=== PATIENT | male | born 1975 | race African-American/Black ===

== ENCOUNTER 2018-10-13 10:27 | Emergency (ER) | payer OTHER ==
[2018-10-13 10:33] VITALS: BMI 22.8
--- NOTE | 2018-10-13 11:13 | PDOC ---
History of Present Illness - General Chief Complaint: Laceration Stated Complaint: LAC RT EYE Time Seen by Provider: 10/13/18 10:38 Past History - Past Medical History Allergies/Adverse Reactions: Allergies Allergy/AdvReac Type Severity Reaction Status Date / Time No Known Allergies Allergy Verified 10/13/18 10:33 Home Medications: Ambulatory Orders NK [No Known Home Medication] 10/13/18 COPD: No - Suicide/Smoking/Psychosocial Hx Smoking History: Never smoked *Physical Exam - Vital Signs Last Vital Signs Temp Pulse Resp BP Pulse Ox 98 F 63 18 107/75 99 10/13/18 10:29 10/13/18 10:29 10/13/18 10:29 10/13/18 10:29 10/13/18 10:29
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
[2018-10-13] MEDS ORDERED: ACETAMINOPHEN 650 MG/20.3 ML ORAL SOLUTION (CUPS) PO ONE (11:40)
[2018-10-13] MEDS ORDERED: DIPHTH,PERTUSS(ACELL),TET 0.5 ML DISP.SYRIN IM ONE ×2 (11:41→11:44)
[2018-10-13] MEDS ORDERED: ACETAMINOPHEN 650 MG/20.3 ML ORAL SOLUTION (CUPS) ONE (11:44)
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
[2018-10-13] MEDS ORDERED: SODIUM CHLORIDE 1,000 ML IV STA (13:14)
[2018-10-13 14:21] VITALS: BP 107/69; PULSE 68; TEMP 98.1
== END 2018-10-13 14:18 | disposition short-term general hospital (02) ==
LOC: JER 10:27
PROC: 3E0337Z Introduction of Electrolytic and Water Balance Substance into Peripheral Vein, Percutaneous Approach (ICD-10-PCS; principal; 2018-10-13)
PROC: 3E0234Z Introduction of Serum, Toxoid and Vaccine into Muscle, Percutaneous Approach (ICD-10-PCS; 2018-10-13)
DX: S01.111A Laceration without foreign body of right eyelid and periocular area, initial encounter (principal); S05.01XA Injury of conjunctiva and corneal abrasion without foreign body, right eye, initial encounter; H02.842 Edema of right lower eyelid; H02.841 Edema of right upper eyelid; W22.8XXA Striking against or struck by other objects, initial encounter; Y93.89 Activity, other specified; Y92.038 Other place in apartment as the place of occurrence of the external cause; Y99.8 Other external cause status; Y08.89XA Assault by other specified means, initial encounter; Y07.02 Wife, perpetrator of maltreatment and neglect
CPT/HCPCS: 90471; 90715; 96360; 99284-25; J7030

== ENCOUNTER 2019-12-28 20:57 | Emergency (ER) | payer OTHER ==
[2019-12-28 21:04] VITALS: BP 126/89; PULSE 74; TEMP 98.9; BMI 24.4
--- NOTE | 2019-12-28 21:13 | PDOC ---
History of Present Illness - General History Source: Patient Exam Limitations: No Limitations - History of Present Illness Initial Comments: 12/28/19 21:15 43yM w PMHx medial canthus laceration s/p 2 surgeries presenting w swelling, discomfort, and purulent discharge at medial canthus noted at 8pm. Denies eye trauma. Denies pain w EOM, vision changes, headache. Had surgery at [facility] in October 2018 after being evaluated for medial canthus lac on 10/13/18 and [facility] in May 2019, doesn't remember opthamologists names (at home) <Dereck Parr - Last Filed: 12/28/19 23:07> <Torsten Gonzalez - Last Filed: 01/02/20 17:30> - General Chief Complaint: Eye Problem Stated Complaint: RIGHT EYE EVALUATION Time Seen by Provider: 12/28/19 21:12 Past History - Medical History COPD: No - Psycho-Social/Smoking History Smoking History: Never smoked - Substance Abuse Hx (Audit-C & DAST Scrn) How often the patient has a drink containing alcohol: Never Score: In Men: 4 or > Positive; In Women: 3 or > Positive: 0 Screen Result (Pos requires Nsg. Audit-10AR): Negative In the last yr the pt used illegal drug/Rx for NonMed reason: No Score: Yes response is considered Positive: 0 Screen Result (Positive result requires Nsg. DAST-10): Negative <Dereck Parr - Last Filed: 12/28/19 23:07> <Torsten Gonzalez - Last Filed: 01/02/20 17:30> - Medical History Allergies/Adverse Reactions: Allergies Allergy/AdvReac Type Severity Reaction Status Date / Time No Known Allergies Allergy Verified 10/13/18 10:33 Home Medications: Ambulatory Orders Ciprofloxacin 0.3% Eye Drops [Ciloxan 0.3% Eye Drops --] 2 drop OD Q4H 7 Days #1 bottle 12/28/19 Moxifloxacin HCl [Moxifloxacin] 3 ml OP QID 7 Days #1 drops 12/28/19 Review of Systems - Review of Systems Constitutional: No: Chills, Fever HEENTM: No: Eye Pain, Recent change in vision Respiratory: No: Cough, Shortness of Breath Cardiac (ROS): No: Chest Pain, Palpitations ABD/GI: No: Constipated, Diarrhea, Nausea, Vomiting : No: Burning, Dysuria Musculoskeletal: No: Back Pain, Joint Pain Integumentary: No: Bruising, Flushing Neurological: No: Headache, Seizure Psychiatric: No: Anxiety, Depression Endocrine: No: Intolerance to Cold, Intolerance to Heat Hematologic/Lymphatic: No: Anemia, Blood Clots <Dereck Parr - Last Filed: 12/28/19 23:07> *Physical Exam - Vital Signs Last Vital Signs Temp Pulse Resp BP Pulse Ox 98.9 F 74 19 126/89 97 12/28/19 20:59 12/28/19 20:59 12/28/19 20:59 12/28/19 20:59 12/28/19 20:59 - Physical Exam General Appearance: Yes: Nourished, Appropriately Dressed, Mild Distress HEENT: positive: EOMI, BRYANT, Normal Voice, Hearing Grossly Normal, Other (R eye - 0.5cm red buldge from external medial canthus w minimal purulent discharge, increased eye tearing and injected conjuntiva. Intact visual wells, no pain w EOM. No eyelid swelling). negative: Scleral Icterus (R), Scleral Icterus (L) Respiratory/Chest: positive: Lungs Clear, Normal Breath Sounds. negative: Chest Tender, Respiratory Distress Cardiovascular: positive: Regular Rhythm, Regular Rate, S1, S2. negative: Edema, Murmur Integumentary: positive: Normal Color, Warm Neurologic: positive: Fully Oriented, Alert, Normal Mood/Affect, Normal Response, Responsive <Dereck Parr - Last Filed: 12/28/19 23:07> - Vital Signs Last Vital Signs Temp Pulse Resp BP Pulse Ox 98.9 F 74 19 126/89 97 12/28/19 20:59 12/28/19 20:59 12/28/19 20:59 12/28/19 20:59 12/28/19 20:59 <Torsten Gonzalez - Last Filed: 01/02/20 17:30> Medical Decision Making - Medical Decision Making 12/28/19 23:10 43yM w PMHx medial canthus laceration s/p 2 surgeries presenting w swelling and purulent discharge at medial canthus noted at 8pm. Denies eye trauma. Dacrocystitis vs post-op complication vs medial canthus infection. Intact visual wells, no pain w EOM. No evidence of orbital cellulitis DC w optho f/u, ED return precautions, ciprofloxacin (changed from moxifloxacin which insurance doesn't cover) <Dereck Parr - Last Filed: 12/28/19 23:07> Discharge - Discharge Information Problems reviewed: Yes <Dereck Parr - Last Filed: 12/28/19 23:07> - Discharge Information Problems reviewed: Yes <Torsten Gonzalez - Last Filed: 01/02/20 17:30> - Discharge Information Clinical Impression/Diagnosis: Eye problem Condition: Good Disposition: HOME - Additional Discharge Information Prescriptions: Ciprofloxacin 0.3% Eye Drops [Ciloxan 0.3% Eye Drops --] 2 drop OD Q4H 7 Days #1 bottle Moxifloxacin HCl [Moxifloxacin] 3 ml OP QID 7 Days #1 drops - Follow up/Referral Referrals: Nate Starks [Primary Care Provider] - - Patient Discharge Instructions Additional Instructions: Take the prescribed moxifloxacin drops as directed Do not rub your eyes Follow up with your opthamologist within the next 1-3 days Go to [facility] if you have vision changes, pain with eye movement, or trouble opening your eye
[2019-12-28] MEDS ORDERED: TETRACAINE 0.5% OPHTH SOLN 2 ML BOTTLE ONE (21:28)
--- NOTE | 2020-01-02 16:58 | PDOC ---
Documentation entered by Rashad Bains SCRIBE, acting as scribe for Torsten Gonzalez DO. Torsten Gonzalez DO: This documentation has been prepared by the noman, Rashad Bains SCRIBE, under my direction and personally reviewed by me in its entirety. I confirm that the documentation accurately reflects all work, treatment, procedures, and medical decision making performed by me. 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 will consider possible superimposed infection of [facility] MDM Will plan for ophthalmic appointment/antibiotics Follow up with excisional biopsy with ophthalmology Will advise patient he needs close ophthalmology follow up and to return for any swelling or visual changes 01/02/20 17:29 Discharge - Discharge Information Problems reviewed: Yes Clinical Impression/Diagnosis: Eye problem Condition: Good Disposition: HOME - Additional Discharge Information Prescriptions: Ciprofloxacin 0.3% Eye Drops [Ciloxan 0.3% Eye Drops --] 2 drop OD Q4H 7 Days #1 bottle Moxifloxacin HCl [Moxifloxacin] 3 ml OP QID 7 Days #1 drops - Follow up/Referral Referrals: Nate Starks [Primary Care Provider] - - Patient Discharge Instructions Additional Instructions: Take the prescribed moxifloxacin drops as directed Do not rub your eyes Follow up with your opthamologist within the next 1-3 days Go to [facility] if you have vision changes, pain with eye movement, or trouble opening your eye - Post Discharge Activity
== END 2019-12-28 22:12 | disposition home or self-care (01) ==
LOC: JER 20:57
DX: H57.11 Ocular pain, right eye (principal)
CPT/HCPCS: 99283-25

== ENCOUNTER 2024-03-18 08:41 | Emergency (ER) | payer OTHER ==
[2024-03-18 08:56] VITALS: BP 119/74; PULSE 69; RESP 18; TEMP 97.6; BMI 24.0
== END 2024-03-18 10:01 | disposition home or self-care (01) ==
LOC: JERFT 08:41
DX: M54.2 Cervicalgia (principal); V49.50XA Passenger injured in collision with unspecified motor vehicles in traffic accident, initial encounter
CPT/HCPCS: 99283-25